=== PATIENT | female | born 1965 | race Caucasian/White ===

== ENCOUNTER 2022-09-21 16:27 | Observation (INO) | payer OTHER ==
--- NOTE | 2022-09-21 17:01 | ED ---
General Adult HPI - General Chief complaint: Chest Pain Stated complaint: chest pain Time Seen by Provider: 09/21/22 16:41 Source: patient Mode of arrival: ambulatory Limitations: no limitations - History of Present Illness Initial comments: Dictation was produced using [employer] dictation software. please excuse any grammatical, word or spelling errors. Chief Complaint: 57-year-old femalepast medical history presents to the emergency department with chest pressure History of Present Illness: Patient is a 49-year-old female she has no known past medical history. States that she is here today for on and off chest pressure. He states it radiates to the left shoulder area. She's been feeling dizzy. Denies any shortness of breath. No diaphoresis. Patient denies any medical problems. On a tobacco user. Her parent was diagnosed with coronary artery disease requiring quadruple bypass in his 60s. The ROS documented in this emergency department record has been reviewed and confirmed by me. Those systems with pertinent positive or negative responses have been documented in the HPI. All other systems are other negative and/or noncontributory. PHYSICAL EXAM: General Impression: Alert and oriented x3, not in acute distress HEENT: Normocephalic atraumatic, extra-ocular movements intact, pupils equal and reactive to light bilaterally, mucous membranes moist. Cardiovascular: Heart regular rate and rhythm Chest: Able to complete full sentences, no retractions, no tachypnea Abdomen: abdomen soft, non-tender, non-distended, no organomegaly Musculoskeletal: Pulses present and equal in all extremities, no peripheral e nba Motor: no focal deficits noted Neurological: CN II-XII grossly intact, no focal motor or sensory deficits noted Skin: Intact with no visualized rashes Psych: Normal affect and mood ED course: 57-year-old female presents to the emergency room with symptoms concerning for ACS. Vital signs upon arrival are within acceptable limits. Nursing notes and chart review was performed My EKG interpretation: Ventricular rate 67, sinus rhythm,. Interval 173, QRS 92, QTc 413. No MN prolongation, no QTC prolongation, no ST or T-wave changes noted. Overall, this EKG is unremarkable Was pt. sent in by a medical professional or institution (, PA, INSTRUCTIONAL TECHNOLOGIST, urgent care, hospital, or skilled nursing...) When possible be specific @ -No Did you speak to anyone other than the patient for history (EMS, parent, family, police, friend...)? What history was obtained from this source @ -No Did you review nursing and triage notes (agree or disagree)? Why? @ -I reviewed and agree with nursing and triage notes Were old charts reviewed (outside hosp., previous admission, EMS record, old EKG, old radiological studies, urgent care reports/EKG's, skilled nursing records)? Report findings @ -No old charts were reviewed Differential Diagnosis (chest pain, altered mental status, abdominal pain women, abdominal pain men, vaginal bleeding, musculoskeletal, weakness, fever, dyspnea, syncope, headache, dizziness, GI bleed, back pain, seizure, CVA, palpatations, mental health)? @ -Differential Chest Pain: Stable Angina, Unstable Angina, STEMI, NSTEMI Aortic Dissection, Pneumothorax, Musculoskeletal, Esophageal Spasm GERD, Cholecystitis, Pancreatitis, Zoster, this is not meant to be an all-inclusive list. EKG interpreted by me (3pts min.). @ -See above X-rays interpreted by me (1pt min.). @ -non Acute CT interpreted by me (1pt min.). @ -None done U/S interpreted by me (1pt. min.). @ -None done What testing was considered but not performed or refused? (CT, X-rays, U/S, labs)? Why? @ -See above What meds were considered but not given or refused? Why? @ -See above Did you discuss the management of the patient with other professionals (professionals i.e. , PA, INSTRUCTIONAL TECHNOLOGIST, lab, RT, psych nurse, social worker masters, wrap yarn sorter, teacher, customer service security officer, rn case mgr)? Give summary @ -With sheet for admission Was smoking cessation discussed for >3mins.? @ -No Was critical care preformed (if so, how long)? @ -No Were there social determinants of health that impacted care today? How? (Homelessness, low income, unemployed, alcoholism, drug addiction, transportation, low edu. Level, literacy, decrease access to med. care, senior care, rehab)? @ -No Was there de-escalation of care discussed even if they declined (Discuss DNR or withdrawal of care, Hospice)? DNR status @ -No What co-morbidities impacted this encounter? (DM, HTN, Smoking, COPD, CAD, Cancer, CVA, ARF, Chemo, Hep., AIDS, mental health diagnosis, sleep apnea, morbid obesity)? @ -None Was patient admitted / discharged? Hospital course, mention meds given and route, prescriptions, significant lab abnormalities, going to OR and other pertinent info. @ -See above Undiagnosed new problem with uncertain prognosis? @ -No Drug Therapy requiring intensive monitoring for toxicity (Heparin, Nitro, Insulin, Cardizem)? @ -No Were any procedures done? @ -No Diagnosis/symptom? Acute, or Chronic, or Acute on Chronic? Uncomplicated (without systemic symptoms) or Complicated (systemic symptoms)? @ -1. Acute chest pain Side effects of treatment? @ -No Exacerbation, Progression, or Severe Exacerbation? @ -No Poses a threat to life or bodily function? How? (Chest pain, [place], [place], pneumonia, PE, COPD, DKA, ARF, appy, cholecystitis, CVA, Diverticulitis, Homicidal, Suicidal, threat to staff... and all critical care pts) @ -yes - Related Data Home Medications Medication Instructions Recorded Confirmed No Known Home Medications 09/21/22 09/21/22 Allergies Allergy/AdvReac Type Severity Reaction Status Date / Time rosuvastatin [From Crestor] AdvReac Hip & Verified 09/21/22 17:59 Joint pain Review of Systems ROS Statement: Those systems with pertinent positive or pertinent negative responses have been documented in the HPI. ROS Other: All systems not noted in ROS Statement are negative. Past Medical History Past Medical History: No Reported History History of Any Multi-Drug Resistant Organisms: None Reported Past Surgical History: No Surgical Hx Reported Past Psychological History: No Psychological Hx Reported Smoking Status: Never smoker Past Alcohol Use History: None Reported Past Drug Use History: None Reported General Exam Limitations: no limitations Course Vital Signs 09/21/22 09/21/22 16:37 18:07 Temperature 98.5 F Pulse Rate 83 70 Respiratory 20 18 Rate Blood Pressure 159/85 136/84 O2 Sat by Pulse 99 97 Oximetry Medical Decision Making - Lab Data Result diagrams: 09/21/22 17:11 09/21/22 17:11 Lab Results 09/21/22 09/21/22 09/21/22 Range/Units 17:11 17:11 17:11 WBC 5.9 (3.8-10.6) k/uL RBC 4.53 (3.80-5.40) m/uL Hgb 13.0 (11.4-16.0) gm/dL Hct 38.4 (34.0-46.0) % MCV 84.9 (80.0-100.0) fL MCH 28.7 (25.0-35.0) pg MCHC 33.8 (31.0-37.0) g/dL RDW 12.8 (11.5-15.5) % Plt Count 172 (150-450) k/uL MPV 8.1 Neutrophils % 56 % Lymphocytes % 32 % Monocytes % 7 % Eosinophils % 1 % Basophils % 1 % Neutrophils # 3.3 (1.3-7.7) k/uL Lymphocytes # 1.9 (1.0-4.8) k/uL Monocytes # 0.4 (0-1.0) k/uL Eosinophils # 0.1 (0-0.7) k/uL Basophils # 0.0 (0-0.2) k/uL PT 9.8 (9.0-12.0) sec INR 0.9 (<1.2) APTT 23.7 (22.0-30.0) sec Sodium 140 (137-145) mmol/L Potassium 3.9 (3.5-5.1) mmol/L Chloride 104 (98-107) mmol/L Carbon Dioxide 25 (22-30) mmol/L Anion Gap 11 mmol/L BUN 19 H (7-17) mg/dL Creatinine 0.62 (0.52-1.04) mg/dL Est GFR (CKD-EPI)AfAm >90 (>60 ml/min/1.73 sqM) Est GFR (CKD-EPI)NonAf >90 (>60 ml/min/1.73 sqM) Glucose 98 (74-99) mg/dL Calcium 9.3 (8.4-10.2) mg/dL Magnesium 2.0 (1.6-2.3) mg/dL Total Bilirubin 0.4 (0.2-1.3) mg/dL AST 22 (14-36) U/L ALT 20 (4-34) U/L Alkaline Phosphatase 96 (38-126) U/L Troponin I (0.000-0.034) ng/mL Total Protein 6.8 (6.3-8.2) g/dL Albumin 4.4 (3.5-5.0) g/dL 09/21/22 Range/Units 17:11 WBC (3.8-10.6) k/uL RBC (3.80-5.40) m/uL Hgb (11.4-16.0) gm/dL Hct (34.0-46.0) % MCV (80.0-100.0) fL MCH (25.0-35.0) pg MCHC (31.0-37.0) g/dL RDW (11.5-15.5) % Plt Count (150-450) k/uL MPV Neutrophils % % Lymphocytes % % Monocytes % % Eosinophils % % Basophils % % Neutrophils # (1.3-7.7) k/uL Lymphocytes # (1.0-4.8) k/uL Monocytes # (0-1.0) k/uL Eosinophils # (0-0.7) k/uL Basophils # (0-0.2) k/uL PT (9.0-12.0) sec INR (<1.2) APTT (22.0-30.0) sec Sodium (137-145) mmol/L Potassium (3.5-5.1) mmol/L Chloride (98-107) mmol/L Carbon Dioxide (22-30) mmol/L Anion Gap mmol/L BUN (7-17) mg/dL Creatinine (0.52-1.04) mg/dL Est GFR (CKD-EPI)AfAm (>60 ml/min/1.73 sqM) Est GFR (CKD-EPI)NonAf (>60 ml/min/1.73 sqM) Glucose (74-99) mg/dL Calcium (8.4-10.2) mg/dL Magnesium (1.6-2.3) mg/dL Total Bilirubin (0.2-1.3) mg/dL AST (14-36) U/L ALT (4-34) U/L Alkaline Phosphatase (38-126) U/L Troponin I <0.012 (0.000-0.034) ng/mL Total Protein (6.3-8.2) g/dL Albumin (3.5-5.0) g/dL Disposition Clinical Impression: Chest pain Disposition: ADMITTED IP TO THIS HOSP Condition: Fair Referrals: Hopman,Renetta, MD [Primary Care Provider] - 1-2 days Decision Time: 19:01
[2022-09-21 17:31] LABS: Basophils % (A) 1 %; Eosinophils # (A) 0.1 k/uL (0-0.7); Eosinophils % (A) 1 %; HCT 38.4 % (34.0-46.0); Lymphocytes # (A) 1.9 k/uL (1.0-4.8); Lymphocytes % (A) 32 %; MCH 28.7 pg (25.0-35.0); MCHC 33.8 g/dL (31.0-37.0); MCV 84.9 fL (80.0-100.0); Mean Platelet Volume 8.1; Monocytes # (A) 0.4 k/uL (0-1.0); Monocytes % (A) 7 %; Neutrophils # (A) 3.3 k/uL (1.3-7.7); Neutrophils % (A) 56 %; Platelet Count 172 k/uL (150-450); RBC 4.53 m/uL (3.80-5.40); RDW 12.8 % (11.5-15.5); WBC 5.9 k/uL (3.8-10.6)
--- NOTE | 2022-09-21 17:37 | XR ---
EXAMINATION TYPE: XR chest 2V DATE OF EXAM: 09/21/2022 COMPARISON: NONE HISTORY: Chest pain TECHNIQUE: 2 views FINDINGS: Heart is normal. Lungs are clear of infiltrate. No heart failure. There are no hilar masses . The bony thorax is intact. There is some mild pleural thickening right lung apex. IMPRESSION: No active cardiopulmonary disease. Normal heart.
[2022-09-21 17:40] LABS: INR 0.9 (<1.2); Partial Thromboplastin Time 23.7 sec (22.0-30.0); Prothrombin Time 9.8 sec (9.0-12.0)
[2022-09-21 17:52] LABS: ALT 20 U/L (4-34); AST 22 U/L (14-36); African American GFR (CKD) >90 (>60 ml/min/1.73 sqM); Albumin 4.4 g/dL (3.5-5.0); Alkaline Phosphatase 96 U/L (38-126); Anion Gap 11 mmol/L; Blood Urea Nitrogen 19 mg/dL (7-17); Calcium 9.3 mg/dL (8.4-10.2); Carbon Dioxide 25 mmol/L (22-30); Chloride 104 mmol/L (98-107); Glucose 98 mg/dL (74-99); Non-African American GFR(CKD) >90 (>60 ml/min/1.73 sqM); Potassium 3.9 mmol/L (3.5-5.1); Sodium 140 mmol/L (137-145); Total Bilirubin 0.4 mg/dL (0.2-1.3); Total Protein 6.8 g/dL (6.3-8.2)
[2022-09-21] MEDS ORDERED: ASPIRIN 81 MG PO STA (18:59)
[2022-09-21] MEDS ORDERED: NITROGLYCERIN SL TABS 0.4 MG TAB SUBLINGUAL PRN (18:59)
[2022-09-22 08:08] VITALS: BP 133/84; PULSE 71; RESP 16; TEMP 98.2
[2022-09-22 08:54] LABS: WBC 5.24 X 10*3/uL (4.50-10.00)
[2022-09-22 08:55] LABS: Basophils # (A) 0.04 X 10*3/uL (0.00-0.10); Basophils % (A) 0.8 %; Eosinophils # (A) 0.09 X 10*3/uL (0.04-0.35); Eosinophils % (A) 1.7 %; HCT 39.9 % (37.2-46.3); HGB 12.6 g/dL (12.0-15.0); Immature Grans, Automated 0.2 %; Lymphocytes # (A) 1.65 X 10*3/uL (0.90-5.00); Lymphocytes % (A) 31.5 %; MCH 27.8 pg (27.0-32.0); MCHC 31.6 g/dL (32.0-37.0); MCV 88.1 fL (80.0-97.0); Mean Platelet Volume 11.2 fL (9.5-12.2); Monocytes # (A) 0.61 X 10*3/uL (0.20-1.00); Monocytes % (A) 11.6 %; NRBC Per 100 WBC 0 /100 WBCS (0.0-0.0); Neutrophils # (A) 2.84 X 10*3/uL (1.80-7.70); Neutrophils % (A) 54.2 %; Platelet Count 186 X 10*3/uL (140-440); RBC 4.53 X 10*6/uL (4.10-5.20); RDW 12.6 % (11.5-14.5)
--- NOTE | 2022-09-22 08:57 | P.CRDCN ---
History of Present Illness Consult date: 09/22/22 Chief complaint: Chest pain History of present illness: The patient is a pleasant 57-year-old female patient was no significant past medical history presented to the hospital complaining of chest discomfort. She describes intermittent episodes of chest discomfort in the middle of the chest and left side of the chest was no radiation to the arms or neck or shoulders or back and no associated symptoms of shortness of breath or dizziness or li ghtheadedness or any feeling of heart racing or fluttering or any bruit syncope or syncope. The chest discomfort is clearly not exertion related. She underwent a workup including EKG showing sinus rhythm was no significant ST or T-wave abnormalities and the troponin came in to be unremarkable. The rest of the workup came in to be unremarkable and currently she is chest pain-free. She has no risk factors of hypertension or dyslipidemia or diabetes and she does not smoke. No significant family history of premature coronary artery disease. The examination is remarkable for regular rhythm with clear breathing sounds bilaterally and soft nontender abdomen and the lower extent is edema noted Assessment Atypical chest discomfort Plan Acute coronary event was ruled out Severe CAD to be ruled out. I advised seeding with a stress test but the patient would like to have it done as an outpatient. I am going to give the patient up and around and if she is asymptomatic she potentially can be discharged home and have the stress test as an outpatient. Past Medical History Past Medical History: No Reported History History of Any Multi-Drug Resistant Organisms: None Reported Past Surgical History: No Surgical Hx Reported Past Psychological History: No Psychological Hx Reported Smoking Status: Never smoker Past Alcohol Use History: None Reported Past Drug Use History: None Reported Medications and Allergies Home Medications Medication Instructions Recorded Confirmed Type No Known Home Medications 09/21/22 09/21/22 History Allergies Allergy/AdvReac Type Severity Reaction Status Date / Time rosuvastatin [From Crestor] AdvReac Hip & Verified 09/21/22 17:59 Joint pain Physical Exam Vitals: Vital Signs Temp Pulse Pulse Resp BP BP BP 09/22/22 07:00 98.2 F 71 16 133/84 09/22/22 02:28 97.5 F L 59 L 17 133/77 09/21/22 20:45 97.4 F L 68 18 153/83 09/21/22 20:25 57 L 18 141/79 09/21/22 18:07 70 18 136/84 09/21/22 16:37 98.5 F 83 20 159/85 Pulse Ox 09/22/22 07:00 98 09/22/22 02:28 97 09/21/22 20:45 99 09/21/22 20:25 97 09/21/22 18:07 97 09/21/22 16:37 99 Intake and Output 09/21/22 09/22/22 09/22/22 22:59 06:59 14:59 Other: # Voids 1 1 Weight 58.967 kg Results 09/22/22 04:12 09/21/22 17:11 Cardiac Enzymes 09/21/22 09/21/22 09/21/22 Range/Units 17:11 17:11 20:14 AST 22 (14-36) U/L Troponin I <0.012 <0.012 (0.000-0.034) ng/mL 09/21/22 Range/Units 23:16 AST (14-36) U/L Troponin I <0.012 (0.000-0.034) ng/mL Coagulation 09/21/22 Range/Units 17:11 PT 9.8 (9.0-12.0) sec APTT 23.7 (22.0-30.0) sec CBC 09/21/22 09/22/22 Range/Units 17:11 04:12 WBC 5.9 5.24 (3.8-10.6) k/uL RBC 4.53 4.53 (3.80-5.40) m/uL Hgb 13.0 12.6 (11.4-16.0) gm/dL Hct 38.4 39.9 (34.0-46.0) % Plt Count 172 186 (150-450) k/uL Comprehensive Metabolic Panel 09/21/22 Range/Units 17:11 Sodium 140 (137-145) mmol/L Potassium 3.9 (3.5-5.1) mmol/L Chloride 104 (98-107) mmol/L Carbon Dioxide 25 (22-30) mmol/L BUN 19 H (7-17) mg/dL Creatinine 0.62 (0.52-1.04) mg/dL Glucose 98 (74-99) mg/dL Calcium 9.3 (8.4-10.2) mg/dL AST 22 (14-36) U/L ALT 20 (4-34) U/L Alkaline Phosphatase 96 (38-126) U/L Total Protein 6.8 (6.3-8.2) g/dL Albumin 4.4 (3.5-5.0) g/dL Current Medications Generic Name Dose Route Start Last Admin Trade Name Freq PRN Reason Stop Dose Admin Aspirin 325 mg 09/22/22 09:00 09/22/22 08:26 Aspirin 325 Mg Tab PO 325 mg DAILY LEROY Administration Nitroglycerin 0.4 mg 09/21/22 18:59 Nitroglycerin Sl Tabs 0.4 Mg Tab SUBLINGUAL Q5M PRN Chest Pain Intake and Output 09/21/22 09/22/22 09/22/22 22:59 06:59 14:59 Other: # Voids 1 1 Weight 58.967 kg 09/22/22 04:12 09/21/22 17:11
[2022-09-22] MEDS ORDERED: ASPIRIN 325 MG TAB PO SCH (09:00)
[2022-09-22 09:05] LABS: African American GFR (CKD) 116.4 (60.0-200.0); BUN/Creat Ratio 20.67 Ratio (12.00-20.00); Blood Urea Nitrogen 12.4 mg/dL (9.0-27.0); Calcium 9.5 mg/dL (8.7-10.3); Carbon Dioxide 25.2 mmol/L (20.0-27.5); Chloride 108 mmol/L (96-109); Chol/HDL Ratio 4.18 Ratio; Glucose 93 mg/dL (70-110); LDL Cholesterol,Calculated 175.1 mg/dL (0.0-131.0); Non-African American GFR(CKD) 100.5 (60.0-200.0); Potassium 3.8 mmol/L (3.5-5.5); Sodium 143 mmol/L (135-145)
== END 2022-09-22 11:04 | disposition home or self-care (01) ==
LOC: EC 16:27 → 6NMEDSUR 18:59
PROVIDERS: ADMIT Internal Medicine; ATTEND Internal Medicine
DX: R07.89 Other chest pain (principal); Z82.49 Family history of ischemic heart disease and other diseases of the circulatory system; Z88.8 Allergy status to other drugs, medicaments and biological substances
CPT/HCPCS: 99285; 36415; 93005; 80061; 80053; 80048; 83735; 84484; 85025 ×2; 85610; 85730; 71046; G0378 ×2

== ENCOUNTER → 2024-02-28 | Outpatient (CLI) | payer OTHER ==
--- NOTE | 2024-04-02 11:47 | MR ---
EXAMINATION TYPE: MR elbow LT wo/w con DATE OF EXAM: 03/25/2024 COMPARISON: None available HISTORY: Pain. Lateral epicondylitis TECHNIQUE: Multiplanar, multisequence images of the left elbow were acquired without and with contrast. FINDINGS: BONES/JOINTS: Degenerative subchondral cystic changes within the radial head.. Joint spaces are maint ained. Articular cartilage is normal. No joint effusion. LIGAMENTS: The medial ligamentous structures, including the ulnar collateral ligament, are intact. La teral ligamentous structures are intact. TENDONS: The distal biceps tendon and brachialis tendon are intact. Distal triceps tendon is intact. Complete tear of the anocutaneous tendon. High-grade partial tear of the common extensor tendon origin, predominantly involving the posterior f ibers; the extensor carpi ulnar areas tendon slips are completely torn. The intact anterior fibers of the common extensor tendon are increased in signal, relating to tendinosis. The common flexor tendon is normal. NEUROVASCULAR: Normal neurovascular structures. Cubital tunnel is normal. SOFT TISSUES: Normal. No bursal distention. No abnormal postcontrast enhancement. IMPRESSION: 1. High-grade, near-complete tear of the common extensor tendon origin; the more posterior fibers are completely torn. 2. Complete tear of the anconeus tendon. 3. Degenerative changes in the radial head.
== END | disposition home or self-care (01) ==
LOC: RADMRIMAIN 07:38
PROVIDERS: ATTEND Internal Medicine Rheumatology
DX: M77.12 Lateral epicondylitis, left elbow (principal); S46.912A Strain of unspecified muscle, fascia and tendon at shoulder and upper arm level, left arm, initial encounter
CPT/HCPCS: 73223; A9585